=== PATIENT | female | born 1990 | race Caucasian/White ===

== ENCOUNTER 2019-09-05 10:02 | Emergency (ER) | payer BC ==
[2019-09-05] MEDS ORDERED: ALBUTEROL 2.5 MG/3 ML NEB SOL ONE (11:02)
[2019-09-05] MEDS ORDERED: predniSONE 20 MG TAB ONE (11:02)
--- NOTE | 2019-09-05 12:15 | RAD REPORT ---
EXAM DESCRIPTION: Karthik Wilson (2 Views)09/05/2019 11:49 am CLINICAL HISTORY: Cough COMPARISON: 2017 FINDINGS: The lungs appear clear of acute infiltrate. The heart is normal size IMPRESSION: No acute abnormalities displayed
--- NOTE | 2019-09-05 12:25 | ER ---
Nurse's Notes [facility] Name: Yennifer Vogt Age: 29 yrs Sex: Female : 1990 Arrival Date: 09/05/2019 Time: 10:04 Bed 13 Private MD: Diagnosis: Cough variant asthma Presentation: 09/05 10:18 Presenting complaint: Patient states: a week ago had a small cough that's gotten worse, iw coughed so hard today that she vomited, is getting very winded. Transition of care: patient was not received from another setting of care. Onset of symptoms was August 29, 2019. Risk Assessment: Do you want to hurt yourself or someone else? Patient reports no desire to harm self or others. Initial Sepsis Screen: Does the patient meet any 2 criteria? No. Patient's initial sepsis screen is negative. Does the patient have a suspected source of infection? No. Patient's initial sepsis screen is negative. Care prior to arrival: None. 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 - Social history:: Smoking status: Patient uses tobacco products, denies chronic smoking, but will smoke occasionally. - Ebola Screening: : Patient negative for fever greater than or equal to 101.5 degrees Fahrenheit, and additional compatible Ebola Virus Disease symptoms Patient denies exposure to infectious person Patient denies travel to an Ebola-affected area in the 21 days before illness onset No symptoms or risks identified at this time. Screenin:46 Abuse screen: Denies threats or abuse. Denies injuries from another. Nutritional ph screening: No deficits noted. Tuberculosis screening: No symptoms or risk factors identified. Fall Risk None identified. Assessment: 11:15 General: Appears in no apparent distress. comfortable, well groomed, Behavior is calm, ph cooperative, appropriate for age. Pain: Denies pain. Neuro: Level of Consciousness is awake, alert, obeys commands, Oriented to person, place, time, situation. Cardiovascular: Capillary refill < 3 seconds in bilateral fingers Patient's skin is warm and dry. Respiratory: Reports shortness of breath at rest cough that is Airway is patent Respiratory effort is even, unlabored, Respiratory pattern is regular, symmetrical, Breath sounds are clear bilaterally. GI: No signs and/or symptoms were reported involving the gastrointestinal system. Derm: Skin is intact, is healthy with good turgor, Skin is pink, warm \T\ dry. Musculoskeletal: Circulation, motion, and sensation intact. Range of motion: intact in all extremities. 12:36 Reassessment: Patient appears in no apparent distress at this time. Patient and/or ph family updated on plan of care and expected duration. Pain level reassessed. Patient is alert, oriented x 3, equal unlabored respirations, skin warm/dry/pink. Vital Signs: 10:21 BP 124 / 77; Pulse 69; Resp 16; Temp 98.2; Pulse Ox 100% on R/A; Weight 70.76 kg; iw Height 5 ft. 2 in. (157.48 cm); Pain 1/10; 11:16 BP 115 / 78; Pulse 71; Resp 18; Pulse Ox 100% on R/A; ph 12:37 BP 118 / 74; Pulse 70; Resp 16; Temp 97.9; Pulse Ox 100% on R/A; ph 10:21 Body Mass Index 28.53 (70.76 kg, 157.48 cm) iw ED Course: 10:04 Patient arrived in ED. mr 10:20 Triage completed. iw 10:21 Arm band placed on. iw 10:28 Garret Edmonds NP is PHCP. pm1 10:28 Ney Gabriel MD is Attending Physician. pm1 10:45 Blank Rosario RN is Primary Nurse. ph 10:46 Patient has correct armband on for positive identification. Placed in gown. Bed in low ph position. Call light in reach. Side rails up X 1. Pulse ox on. NIBP on. Door closed. Noise minimized. Warm blanket given. 11:48 Chest Pa And Lat (2 Views) XRAY In Process Unspecified. EDMS 12:36 No provider procedures requiring assistance completed. Patient did not have IV access ph during this emergency room visit. Administered Medications: 11:12 Drug: Albuterol 2.5 mg Route: Inhalation; ph 12:21 Follow up: Response: No adverse reaction ph 11:13 Drug: predniSONE 60 mg Route: PO; ph 12:21 Follow up: Response: No adverse reaction ph Outcome: 12:24 Discharge ordered by . pm1 12:36 Discharged to home ambulatory. ph 12:36 Condition: good 12:36 Discharge instructions given to patient, Instructed on discharge instructions, follow up and referral plans. medication usage, Demonstrated understanding of instructions, follow-up care, medications, Prescriptions given X 2. 12:37 Patient left the ED. ph Signatures: Dispatcher [employer] [facility] Dian Love Irene, RN RN Blank Rosario RN RN ph Marinas, Patrick, [employer] SAMPLE PROCESSOR pm1
--- NOTE | 2019-09-05 12:26 | EDPHYS ---
Physician Documentation [facility] Name: Yennifer Vogt Age: 29 yrs Sex: Female : 1990 Arrival Date: 09/05/2019 Time: 10:04 Bed 13 Private MD: ED Physician Ney Gabriel HPI: 09/05 10:52 This 29 yrs old Female presents to ER via Ambulatory with complaints of pm1 Cough, Breathing Difficulty. 10:52 The patient or guardian reports cough, with no sputum. Onset: The symptoms/episode pm1 began/occurred 1 week(s) ago. Severity of symptoms: in the emergency department the symptoms are actually worse. Modifying factors: The symptoms are alleviated by nothing, the symptoms are aggravated by Mold in her room. Associated signs and symptoms: Pertinent positives: sore throat, Pertinent negatives: ear ache, fever. The patient has been recently seen at an urgent care, for similar complaints, did not treat or evaluate her because she mentioned mold. had multiple coughing episodes that caused her to vomit once. No other episodes of vomiting. No diarrhea. No abdominal pain. Patient has had a few asthma-episodes in her lifetime with exposure to certain substances. Does not have inhaler or breathing treatments since it has been many years since last episode. 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 - Social history:: Smoking status: Patient uses tobacco products, denies chronic smoking, but will smoke occasionally. - Ebola Screening: : Patient negative for fever greater than or equal to 101.5 degrees Fahrenheit, and additional compatible Ebola Virus Disease symptoms Patient denies exposure to infectious person Patient denies travel to an Ebola-affected area in the 21 days before illness onset No symptoms or risks identified at this time. ROS: 10:52 Constitutional: Negative for fever, chills, and weight loss, Eyes: Negative for injury, pm1 pain, redness, and discharge, ENT: Negative for injury, pain, and discharge, Neck: Negative for injury, pain, and swelling, Cardiovascular: Negative for chest pain, palpitations, and edema. 10:52 Back: Negative for injury and pain, : Negative for injury, bleeding, discharge, and swelling, MS/Extremity: Negative for injury and deformity, Neuro: Negative for headache, weakness, numbness, tingling, and seizure. 10:52 Respiratory: Positive for cough, shortness of breath. 10:52 Abdomen/GI: Positive for one episode of posttussive vomiting, Negative for abdominal pain, nausea, diarrhea, constipation. Exam: 11:00 Constitutional: This is a well developed, well nourished patient who is awake, alert, pm1 and in no acute distress. Head/Face: Normocephalic, atraumatic. Eyes: Pupils equal round and reactive to light, extra-ocular motions intact. Lids and lashes normal. Conjunctiva and sclera are non-icteric and not injected. Cornea within normal limits. Periorbital areas with no swelling, redness, or edema. ENT: Nares patent. No nasal discharge, no septal abnormalities noted. Tympanic membranes are normal and external auditory canals are clear. Oropharynx with no redness, swelling, or masses, exudates, or evidence of obstruction, uvula midline. Mucous membranes moist. Neck: Trachea midline, no thyromegaly or masses palpated, and no cervical lymphadenopathy. Supple, full range of motion without nuchal rigidity, or vertebral point tenderness. No Meningismus. Chest/axilla: Normal chest wall appearance and motion. Nontender with no deformity. No lesions are appreciated. Cardiovascular: Regular rate and rhythm with a normal S1 and S2. No gallops, murmurs, or rubs. No pulse deficits. 11:00 Abdomen/GI: Soft, non-tender, with normal bowel sounds. No distension or tympany. No guarding or rebound. No evidence of tenderness throughout. Back: No spinal tenderness. No costovertebral tenderness. Full range of motion. Skin: Warm, dry with normal turgor. Normal color with no rashes, no lesions, and no evidence of cellulitis. MS/ Extremity: Pulses equal, no cyanosis. Neurovascular intact. Full, normal range of motion. 11:00 Respiratory: the patient does not display signs of respiratory distress, Respirations: normal, Breath sounds: wheezing: that is mild, is heard diffusely. 11:00 Neuro: Orientation: is normal, Motor: is normal, moves all fours. Vital Signs: 10:21 BP 124 / 77; Pulse 69; Resp 16; Temp 98.2; Pulse Ox 100% on R/A; Weight 70.76 kg; iw Height 5 ft. 2 in. (157.48 cm); Pain 11/29; 11:16 BP 115 / 78; Pulse 71; Resp 18; Pulse Ox 100% on R/A; ph 12:37 BP 118 / 74; Pulse 70; Resp 16; Temp 97.9; Pulse Ox 100% on R/A; ph 10:21 Body Mass Index 28.53 (70.76 kg, 157.48 cm) iw MDM: 10:28 Patient medically screened. pm1 11:01 Data reviewed: vital signs. Data interpreted: Pulse oximetry: on room air is 100 %. pm1 Interpretation: normal. 12:21 Counseling: I had a detailed discussion with the patient and/or guardian regarding: the pm1 historical points, exam findings, and any diagnostic results supporting the discharge/admit diagnosis, lab results, radiology results, the need for outpatient follow up, to return to the emergency department if symptoms worsen or persist or if there are any questions or concerns that arise at home. 09/05 10:36 Order name: Flu; Complete Time: 11:25 pm1 09/05 10:36 Order name: Strep; Complete Time: 11:05 pm1 09/05 10:36 Order name: Chest Pa And Lat (2 Views) XRAY; Complete Time: 12:21 pm1 09/05 10:57 Order name: Throat Culture EDMS Administered Medications: 11:12 Drug: Albuterol 2.5 mg Route: Inhalation; ph 12:21 Follow up: Response: No adverse reaction ph 11:13 Drug: predniSONE 60 mg Route: PO; ph 12:21 Follow up: Response: No adverse reaction ph Disposition: 09/05/19 12:24 Discharged to Home. Impression: Cough variant asthma. - Condition is Stable. - Discharge Instructions: Asthma, Adult, Cough, Adult. - Prescriptions for Medrol (Elias) 4 mg Oral Tablets, Dose Pack - take 1 tablet by ORAL route as directed - follow package instructions; 1 packet. Albuterol Sulfate 90 mcg/actuation - inhale 1-2 puff by INHALATION route every 4-6 hours; 1 Inhaler. - Work release form, Medication Reconciliation Form, Thank You Letter, Antibiotic Education, Prescription Opioid Use form. - Follow up: Emergency Department; When: As needed; Reason: Worsening of condition. Follow up: Private Physician; When: 2 - 3 days; Reason: Recheck today's complaints, Continuance of care, Re-evaluation by your physician. - Problem is new. - Symptoms have improved. Addendum: 09/06/2019 15:29 Co-signature as Attending Physician, Ney Gabriel MD. g s Signatures: Dispatcher [employer] EDBernadette Keller RN RN Blank Rosario RN RN ph Garret Edmonds, AEROSPACE MECHANIC AEROSPACE MECHANIC pm1 Ney Gabriel MD MD Corrections: (The following items were deleted from the chart) 09/05 12:37 12:24 09/05/2019 12:24 Discharged to Home. Impression: Cough variant asthma. Condition ph is Stable. Forms are Medication Reconciliation Form, Thank You Letter, Antibiotic Education, Prescription Opioid Use. Follow up: Emergency Department; When: As needed; Reason: Worsening of condition. Follow up: Private Physician; When: 2 - 3 days; Reason: Recheck today's complaints, Continuance of care, Re-evaluation by your physician. Problem is new. Symptoms have improved. pm1
[2019-09-05 12:44] VITALS: O2SAT 100
[2019-09-05 12:46] VITALS: BP 118/74; TEMP 97.9
== END 2019-09-05 12:37 | disposition home or self-care (01) ==
LOC: ER 10:02
DX: J45.991 Cough variant asthma (principal); Z72.0 Tobacco use; Z88.0 Allergy status to penicillin
CPT/HCPCS: 71046; 87070; 87081; 87804; 99284; J7512